=== PATIENT | male | born 1985 | race American Indian/Alaskan Native ===

== ENCOUNTER 2019-05-19 19:35 | Emergency (ER) | payer SELFPAY ==
--- NOTE | 2019-05-19 20:32 | Event Note ---
ED Screening Note Date of service: 05/19/19 Time: 20:28 ED Screening Note: This is a 33 y.o. M. that presents to the ER with chest pain radiating to left arm upon awaking. This initial assessment/diagnostic orders/clinical plan/treatment(s) is/are subject to change based on patients health status, clinical progression and re- assessment by fellow clinical providers in the ED. Further treatment and workup at subsequent clinical providers discretion. Patient/guardian urged not to elope from the ED as their condition may be serious if not clinically assessed and managed. Initial orders include: Labs, EKG, & CXR
--- NOTE | 2019-05-19 20:54 | XRay Report ---
CHEST 2 VIEWS INDICATION: Chest Pain. COMPARISON: None FINDINGS: Support devices: None. Heart: Within normal limits. Lungs/pleura: No acute air space or interstitial disease. No pneumothorax. Additional findings: None. IMPRESSION: 1. No acute findings. Signer Name: Daniel Espinoza MD Signed: 05/19/2019 8:50 PM Workstation Name: [id number]
[2019-05-19 21:18] LABS: Basophils # (Auto) 0.1 K/mm3 (0.0-0.1); Basophils % (Auto) 1.1 % (0.0-1.8); Eosinophils # (Auto) 0.5 K/mm3 (0.0-0.4); Eosinophils % (Auto) 8.6 % (0.0-4.3); Hematocrit 44.9 % (35.5-45.6); Hemoglobin 15.4 gm/dl (11.8-15.2); Lymphocytes # (Auto) 1.7 K/mm3 (1.2-5.4); Lymphocytes % (Auto) 31.2 % (13.4-35.0); Mean Corpuscular HGB Conc 34 % (32-34); Mean Corpuscular Volume 91 fl (84-94); Monocytes # (Auto) 0.4 K/mm3 (0.0-0.8); Monocytes % (Auto) 8.3 % (0.0-7.3); Platelet Count 214 K/mm3 (140-440); Red Blood Count 4.95 M/mm3 (3.65-5.03)
[2019-05-19 21:39] LABS: BUN/Creatinine Ratio 10; Blood Urea Nitrogen 11 mg/dL (9-20); Calcium 9.3 mg/dL (8.4-10.2); Hemolysis Index 7
[2019-05-19] MEDS: ASPIRIN PO ONE ×2 (21:44→21:56)
[2019-05-20] MEDS ORDERED: PEPCID PO ONE (00:39)
--- NOTE | 2019-05-20 00:45 | Emergency Department Report ---
ED Chest Pain HPI - General Chief Complaint: Chest Pain Stated Complaint: CHEST PAIN, LEFT SIDE ARM NUMBNESS Time Seen by Provider: 05/19/19 20:28 Source: patient Mode of arrival: Ambulatory Limitations: No Limitations - History of Present Illness Initial Comments: This is a 33-year-old male presents to ED complaining of left some [place] pressure type chest pain that initially began a year ago. Patient states that he was evaluated by another hospital and was discharged and cleared for any heart disease. Patient states that for the past couple weeks he has been having similar chest pain. Patient states that this pain is worsened when he lays down at night. Patient states that sometimes he feels the pain radiates to his left arm. 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 He denies trauma, injury, shortness of breath, fever, chills, dizziness, MD Complaint: chest pain - Related Data Previous Rx's Medication Instructions Recorded Last Taken Type Famotidine [Pepcid] 20 mg PO BID #40 tablet 05/20/19 Unknown Rx Omeprazole 20 mg PO DAILY #30 capsule. 05/20/19 Unknown Rx methOCARBAMOL [Robaxin TAB] 500 mg PO BID #30 tab 05/20/19 Unknown Rx Allergies Allergy/AdvReac Type Severity Reaction Status Date / Time No Known Allergies Allergy Unverified 05/19/19 20:05 Heart Score - HEART Score History: Slightly suspicious EKG: Normal Age: < 45 Risk factors: No known risk factors Troponin: < normal limit HEART Score: 0 ED Review of Systems ROS: Stated complaint: CHEST PAIN, LEFT SIDE ARM NUMBNESS Other details as noted in HPI Comment: All other systems reviewed and negative ED Past Medical Hx - Past Medical History Previous Medical History?: No - Surgical History Past Surgical History?: No Additional Surgical History: left ankle surgery - Social History Smoking Status: Current Every Day Smoker Substance Use Type: Marijuana - Medications Home Medications: Home Medications Medication Instructions Recorded Confirmed Last Taken Type Famotidine [Pepcid] 20 mg PO BID #40 tablet 05/20/19 Unknown Rx Omeprazole 20 mg PO DAILY #30 capsule. 05/20/19 Unknown Rx methOCARBAMOL [Robaxin TAB] 500 mg PO BID #30 tab 05/20/19 Unknown Rx ED Physical Exam - General Limitations: No Limitations General appearance: alert, in no apparent distress - Head Head exam: Present: atraumatic, normocephalic - Eye Eye exam: Present: normal appearance - ENT ENT exam: Present: mucous membranes moist - Neck Neck exam: Present: normal inspection, full ROM. Absent: tenderness - Respiratory Respiratory exam: Present: normal lung sounds bilaterally. Absent: respiratory distress, wheezes, rales, chest wall tenderness, accessory muscle use - Cardiovascular Cardiovascular Exam: Present: regular rate, normal rhythm. Absent: systolic murmur, diastolic murmur, rubs, gallop - GI/Abdominal GI/Abdominal exam: Present: soft, normal bowel sounds - Rectal Rectal exam: Present: deferred - Extremities Exam Extremities exam: Present: normal inspection - Back Exam Back exam: Present: normal inspection - Neurological Exam Neurological exam: Present: alert, oriented X3 - Psychiatric Psychiatric exam: Present: normal affect, normal mood - Skin Skin exam: Present: warm, dry, intact, normal color. Absent: rash ED Course Vital Signs 05/19/19 20:28 Temperature 98.5 F Pulse Rate 68 Respiratory 15 Rate Blood Pressure 116/70 [Left] O2 Sat by Pulse 100 Oximetry ARCHIE score - Archie Score Age > 65: (0) No Aspirin use within the Past 7 Days: (0) No 3 or more CAD Risk Factors: (0) No 2 or more Angina events in past 24 hrs: (0) No Known CAD with more than 50% Stenosis: (0) No Elevated Cardiac Markers: (0) No ST Deviation Greater than 0.5mm: (0) No ARCHIE Score: 0 ED Medical Decision Making - Lab Data Result diagrams: 05/19/19 21:00 05/19/19 21:00 Laboratory Last Values WBC 5.4 K/mm3 (4.5-11.0) 05/19/19 21:00 RBC 4.95 M/mm3 (3.65-5.03) 05/19/19 21:00 Hgb 15.4 gm/dl (11.8-15.2) H 05/19/19 21:00 Hct 44.9 % (35.5-45.6) 05/19/19 21:00 MCV 91 fl (84-94) 05/19/19 21:00 MCH 31 pg (28-32) 05/19/19 21:00 MCHC 34 % (32-34) 05/19/19 21:00 RDW 14.0 % (13.2-15.2) 05/19/19 21:00 Plt Count 214 K/mm3 (140-440) 05/19/19 21:00 Lymph % (Auto) 31.2 % (13.4-35.0) 05/19/19 21:00 Baxter % (Auto) 8.3 % (0.0-7.3) H 05/19/19 21:00 Eos % (Auto) 8.6 % (0.0-4.3) H 05/19/19 21:00 Baso % (Auto) 1.1 % (0.0-1.8) 05/19/19 21:00 Lymph # 1.7 K/mm3 (1.2-5.4) 05/19/19 21:00 Baxter # 0.4 K/mm3 (0.0-0.8) 05/19/19 21:00 Eos # 0.5 K/mm3 (0.0-0.4) H 05/19/19 21:00 Baso # 0.1 K/mm3 (0.0-0.1) 05/19/19 21:00 Seg Neutrophils % 50.8 % (40.0-70.0) 05/19/19 21:00 Seg Neutrophils # 2.7 K/mm3 (1.8-7.7) 05/19/19 21:00 Sodium 140 mmol/L (137-145) 05/19/19 21:00 Potassium 4.1 mmol/L (3.6-5.0) 05/19/19 21:00 Chloride 102.1 mmol/L (98-107) 05/19/19 21:00 Carbon Dioxide 26 mmol/L (22-30) 05/19/19 21:00 16 mmol/L 05/19/19 21:00 BUN 11 mg/dL (9-20) 05/19/19 21:00 1.1 mg/dL (0.8-1.5) 05/19/19 21:00 Estimated GFR > 60 ml/min 05/19/19 21:00 10 % 05/19/19 21:00 Glucose 92 mg/dL (75-100) 05/19/19 21:00 Calcium 9.3 mg/dL (8.4-10.2) 05/19/19 21:00 < 0.010 ng/mL (0.00-0.029) 05/19/19 21:00 - EKG Data EKG shows normal: sinus rhythm Rate: normal - Radiology Data Radiology results: report reviewed, image reviewed Fluoro Time In Minutes: CHEST 2 VIEWS INDICATION: Chest Pain. COMPARISON: None FINDINGS: Support devices: None. Heart: Within normal limits. Lungs/pleura: No acute air space or interstitial disease. No pneumothorax. Additional findings: None. IMPRESSION: 1. No acute findings. Signer Name: Daniel Espinoza MD Signed: 05/19/2019 8:50 PM Workstation Name: [id number] Transcribed By: DMITRI Dictated By: Daniel Espinoza MD Electronically Authenticated By: Daniel Espinoza MD Signed Date/Time: 05/19/192049 - Medical Decision Making This 33-year-old male presents with atypical chest pain just likely secondary to GERD. Allows within normal limits, troponin negative, chest x-ray shows no acute findings, see report above I discussed all findings with the patient. I discussed the patient to follow up with her primary care physician referrals given. Patient given Pepcid and ED. Critical care attestation.: If time is entered above; I have spent that time in minutes in the direct care of this critically ill patient, excluding procedure time. ED Disposition Clinical Impression: Chest pain due to GERD, Atypical chest pain Disposition: -01 TO HOME OR SELFCARE Is pt being admited?: No Does the pt Need Aspirin: No Condition: Stable Instructions: Chest Pain (ED), Costochondritis (ED), Gastroesophageal Reflux in Children (ED) Additional Instructions: Make sure to follow up with the primary care physician as discussed. Take all your medications as you've been prescribed. If you have any worsening symptoms or develop new symptoms please return to ED immediately. Prescriptions: Omeprazole 20 mg PO DAILY #30 capsule. Famotidine [Pepcid] 20 mg PO BID #40 tablet methOCARBAMOL [Robaxin TAB] 500 mg PO BID #30 tab Referrals: SRAVAN KOVACS MD [Primary Care Provider] - 3-5 Days [facility] [Outside] - 3-5 Days [facility] [Outside] - [facility]] - 3-5 Days Forms: Work/School Release Form(ED) Time of Disposition: 00:53
[2019-05-20 01:23] VITALS: BP 106/76
== END 2019-05-20 01:22 | disposition home or self-care (01) ==
LOC: ED 19:35
DX: K21.9 Gastro-esophageal reflux disease without esophagitis (principal); F17.200 Nicotine dependence, unspecified, uncomplicated; F12.10 Cannabis abuse, uncomplicated
CPT/HCPCS: 36415; 71046; 80048; 84484; 85025; 93005; 93010